=== PATIENT | male | born 1970 | race Caucasian/White ===

== ENCOUNTER 2016-05-09 01:00 | Emergency (ER) | payer OTHER ==
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
[2016-05-09] MEDS ORDERED: IBUPROFEN 600 MG TABLET (FP) PO STA (01:25)
[2016-05-09] MEDS ORDERED: IBUPROFEN 400 MG TABLET (FP) PO ONE (01:37)
[2016-05-09 01:47] VITALS: BP 158/109; PULSE 93; TEMP 97.8; BMI 32.8
[2016-05-09] MEDS ORDERED: OXYCODONE/APAP 5/325MG COMBO TABLET PO ONE (02:28)
[2016-05-09] MEDS ORDERED: OXYCODONE/APAP 5/325MG COMBO TABLET ONE (02:37)
== END 2016-05-09 02:39 | disposition home or self-care (01) ==
LOC: JER 01:00
DX: S09.8XXA Other specified injuries of head, initial encounter (principal); G44.309 Post-traumatic headache, unspecified, not intractable; W20.8XXA Other cause of strike by thrown, projected or falling object, initial encounter; Y93.89 Activity, other specified; Y92.59 Other trade areas as the place of occurrence of the external cause; Y99.0 Civilian activity done for income or pay
CPT/HCPCS: 70450-TC; 99281-25

== ENCOUNTER 2016-05-09 22:30 | Emergency (ER) | payer OTHER ==
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
[2016-05-10] MEDS ORDERED: KETOROLAC TROMETHAMINE 60 MG/2 ML VIAL IM ONE (00:07)
[2016-05-10] MEDS ORDERED: KETOROLAC TROMETHAMINE 60 MG/2 ML VIAL ONE (00:27)
[2016-05-10 00:37] VITALS: BP 141/83; PULSE 80; TEMP 97.4; BMI 32.8
== END 2016-05-10 00:41 | disposition home or self-care (01) ==
LOC: JER 22:30
DX: R20.0 Anesthesia of skin (principal); W22.8XXD Striking against or struck by other objects, subsequent encounter; Y93.89 Activity, other specified; Y92.59 Other trade areas as the place of occurrence of the external cause; Y99.0 Civilian activity done for income or pay
CPT/HCPCS: 70486-TC; 72125-TC; 99282-25

== ENCOUNTER 2018-01-22 06:53 | Day surgery (SDC) | payer OTHER ==
[2018-01-19 13:16] VITALS: BMI 29.9
[~2018-01-22 06:53] MED LIST: oxyCODONE HCL 10 MG SUSTAINED ACTING TABLET PO ONE
[2018-01-22] MEDS ORDERED: oxyCODONE HCL 10 MG SUSTAINED ACTING TABLET ONE (07:07)
[2018-01-22] MEDS ORDERED: GELATIN, ABSORBABLE 100 EACH SPONGE TP ONE (07:40)
[2018-01-22] MEDS ORDERED: LIDOCAINE 1%/EPI 1:100000 (20 ML MULTI DOSE VIAL) ONE (07:40)
[2018-01-22] MEDS ORDERED: THROMBIN (BOVINE) 5,000 UNIT VIAL TP ONE ×2 (07:40→10:28)
[2018-01-22] MEDS ORDERED: DEXAMETHASONE SOD PHOSPHATE/PF 10 MG/ML SDV ONE (08:32)
[2018-01-22] MEDS ORDERED: BUPIVACAINE HCL/PF (5 MG/ML) 30 ML VIAL IJ ONE (08:33)
[2018-01-22] MEDS ORDERED: MIDAZOLAM HCL 2 MG/2 ML SINGLE DOSE VIAL ONE (08:33)
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
[2018-01-22] MEDS ORDERED: ONDANSETRON 4 MG/2 ML VIAL IVPUSH PRN ×2 (11:51→16:08)
[2018-01-22] MEDS ORDERED: oxyCODONE HCL 5 MG TABLET PO PRN (11:51)
[2018-01-22] MEDS ORDERED: ACETAMINOPHEN 1000 MG/100 ML VIAL (NON FORMULARY) IVPB ONE ×2 (11:54→12:05)
[2018-01-22] MEDS ORDERED: PATIENT'S OWN MEDICATION (NON-FORMULARY) (Dextroamphetamine/Amphetamine [Adderall 10 Mg Ta PO PRN (11:58)
[2018-01-22] MEDS ORDERED: clonazePAM 0.5 MG TABLET PO PRN (12:01)
[2018-01-22] MEDS ORDERED: diazePAM 2 MG TABLET ONE (12:30)
[2018-01-22] MEDS ORDERED: diazePAM 2 MG TABLET PO ONE (12:30)
[2018-01-22] MEDS: LACTATED RINGERS SOLUTION 1,000 ML IV SCH (13:52)
[2018-01-22] MEDS ORDERED: clonazePAM 0.5 MG TABLET PO SCH (14:00)
[2018-01-22] MEDS ORDERED: diazePAM 5 MG TABLET PO SCH (14:00)
--- NOTE | 2018-01-22 15:35 | OP ---
DATE OF OPERATION: 01/22/2018 PREOPERATIVE DIAGNOSIS: Cervical stenosis, C6-C7. POSTOPERATIVE DIAGNOSIS: Cervical stenosis, C6-C7. PROCEDURE PERFORMED: 1. Anterior cervical discectomy, C6-C7. 2. Anterior cervical fusion, C6-C7. 3. Placement of instrumentation, C6-C7. 4. Placement of cage. SURGEON: Allan Gomez MD TALK SHOW HOST: BAIRON Castillo ESTIMATED BLOOD LOSS: 50 mL. INTRAVENOUS FLUIDS: Per Anesthesia. ANESTHESIA: General. COMPLICATIONS: There were none. DISPOSITION: Patient was brought to the PACU in stable condition. INDICATIONS FOR SURGERY: The patient is a 47-year-old gentleman who has been suffering from pain from his neck down his right arm. X-rays and MRI were completed, which noted that he had cervical stenosis at C6-C7. He had gone through an exhaustive course of treatment which included medications, physical therapy, as well as injections. Unfortunately, his pain continued to persist despite all this. At this point, risks, benefits, and alternatives were discussed, and the patient consented to surgery. OPERATIVE NOTE: Patient was brought into the operating room by the anesthesia staff. After appropriate patient identification was performed, general anesthesia was given. SCP block was also given. Patient was positioned supine on the OR table with arms well-padded and tucked at the side. A shoulder roll was placed underneath his neck to extend his neck that he could tolerate in the preoperative holding area. After positioning was completed, neuromonitoring was done and was stable. A needle was placed onto his neck to tamir off the C6-C7 level, and x-rays taken to confirm this was correct. The needle was removed, and 10 mL of lidocaine with epinephrine was injected in his neck at this time. His neck was prepped and draped in the usual sterile manner. At this point, a time-out was completed. A 2-inch incision was made on the left side of her neck. Dissection was carried down to the platysma. The platysma was cut in line with the skin incision. Next, internal sternocleidomastoid as well as strap muscles was developed. Next, an internally rotated carotid sheath as well as trachea esophagus was developed. Peanuts were used to elevate off the prevertebral fascia. A needle was placed into the C6-C7 disc. An x-ray was taken to confirm this. The needle was removed, and the disc was cut. The longus colli muscles were elevated off, and retractor blades were placed in. A [employer] [place] pin was placed into the bodies of C6 and C7. Distraction was applied. Microscope was brought in. A knife was used to incise the disc. Using a series of sutures, Kerrrison, and curettes, discectomy was completed. The end-plates were decorticated at this time. A cage was measured and placed in. [employer] [place] pins were removed. A screw was placed in the body of C6 and placed in the body of C7. AP and lateral x-rays confirmed the instrumentation to be in good position. Final tightening was performed at this time. The platysma was closed with a 2-0 Vicryl suture. Skin was closed with a 3-0 Monocryl suture. Dermabond was applied. Steri-Strips were applied. Sterile dressings were applied. Patient was placed supine on the OR bed, x-rayed in the OR, and brought to the PACU in stable condition. Gaudencio SCANLON/[id number]
--- NOTE | 2018-01-22 15:55 | OP ---
Operative Note - Note: Operative Date: 01/22/18 Pre-Operative Diagnosis: anterior cervical stenosis, radiculopathy Operation: anterior cervcial discectomy fusion of C6-C7 with allograft and neuromonitoring Surgeon: Allan Gomez Rn Medical Surgical: Carmen Flores Anesthesiologist/ADVERTISING ACCOUNT MANAGER: Sushil Loredo Anesthesia: Spinal Estimated Blood Loss (mls): 20 Fluid Volume Replaced (mls): 1,300 Operative Report Dictated: Yes
--- NOTE | 2018-01-22 15:56 | SURG ---
Surgery Income Tax Consultant Note Income Tax Consultant: Carmen Flores PA-C Date of Service: 01/22/18 Diagnosis: anterior cervical stenosis, radiculopathy Procedure: anterior cervcial discectomy fusion of C6-C7 with allograft and neuromonitoring I was present for the entirety of the operative procedure. For further detail, please refer to operative report. Visit type - Case Type Case Type: Scheduled - Emergency Emergency Visit: No - New patient This patient is new to me today: Yes Date on this admission: 01/22/18
[2018-01-22] MEDS: oxyCODONE HCL 5 MG TABLET PO PRN ×2 (16:46→19:53)
[2018-01-22] MEDS ORDERED: PHENOL 177 ML SPRAY BOTTLE MM ONE (17:15)
[2018-01-22] MEDS: ACETAMINOPHEN 325 MG TABLET (FP) PO SCH (17:25)
[2018-01-22] MEDS: CEFAZOLIN 1 GM/D5W 1 GRAM/50 ML BAG IVPB SCH (17:26)
[2018-01-22] MEDS: diazePAM 2 MG TABLET PO PRN (19:53)
[2018-01-22] MEDS ORDERED: oxyCODONE HCL 5 MG TABLET PO ONE (20:15)
[2018-01-22] MEDS ORDERED: BUPROPION HCL 150 MG PO SCH (22:00)
[2018-01-22] MEDS ORDERED: ESZOPICLONE 3 MG PO SCH (22:00)
[2018-01-22] MEDS ORDERED: PRAZOSIN HCL 2 MG CAPSULE PO SCH (22:00)
[2018-01-23] MEDS: oxyCODONE HCL 5 MG TABLET PO PRN ×3 (00:52→13:53)
[2018-01-23] MEDS: ACETAMINOPHEN 325 MG TABLET (FP) PO SCH ×2 (00:53→07:08)
[2018-01-23] MEDS: CEFAZOLIN 1 GM/D5W 1 GRAM/50 ML BAG IVPB SCH (01:21)
--- NOTE | 2018-01-23 08:07 | DS ---
"Physical Exam: SUBJECTIVE: Patient seen and examined POD #1 ACDF, patient seen and examined at bedside. Patient states pain is controlled but he has some discomfort in his throat with swallowing. He denies any CP, SOB, N/V, Fever or chills. He has been OOB ambulating without assistance and voiding. OBJECTIVE: Vital Signs Period Temp Pulse Resp BP Sys/Gannon Pulse Ox Last 24 Hr 97.3 F-97.8 F 57-88 16-20 128-163/73-104 94-99 PHYSICAL EXAM GENERAL: The patient is awake, alert, and fully oriented, in no acute distress. HEAD: Normal with no signs of trauma. EYES: extraocular movements intact, sclera anicteric, conjunctiva clear. NECK: Trachea midline, Incision c/d/i with surrounding tissue intact, no tracking erythema, edema or collection, no d/c, steri strips intact and clean and dry, incision flat. EXTREMITIES:moving all extremities without limitation NEUROLOGICAL: Cranial nerves II through XII grossly intact. Normal speech, gait observed. PSYCH: Normal mood, normal affect. SKIN: Warm, dry, normal turgor, no rashes or lesions noted. LABS HOSPITAL COURSE: The patient was admitted to the Med-Surg Unit after an elective repair of their cervical stenosis. Now, s/p ACDF C6-C7. The day of surgery, the patient ambulated the hallways with assistance. Narcotic and non-narcotic pain management control was achieved with an oral and IV approach. POD #1, An xray was obtained and confirmed hardware placement at C6-C7), no fractures or dislocations. Jacqueline-operative IV ABX were administered. DVT prophylaxis was achieved with SCDs and early ambulation. The patient ambulated with Physical Therapy and no services were recommended upon discharge. Narcotic scripts and or muscle relaxants were checked with [facility] prior to escibe. The discharge instructions and an oral pain management plan were reviewed with the patient. All questions answered. Above plan discussed with Dr. Gomez and agreed. Date of Admission:01/22/18 Date of Discharge: 01/23/18 Minutes to complete discharge: 25 <Simona Rob - Last Filed: 01/23/18 08:08> Physical Exam: SUBJECTIVE: Patient seen and examined OBJECTIVE: Vital Signs Period Temp Pulse Resp BP Sys/Gannon Pulse Ox Last 24 Hr 97.3 F-98.2 F 57-82 16-19 117-152/60-76 94-99 PHYSICAL EXAM GENERAL: The patient is awake, alert, and fully oriented, in no acute distress. HEAD: Normal with no signs of trauma. EYES: PERRL, extraocular movements intact, sclera anicteric, conjunctiva clear. ENT: Ears normal, nares patent, oropharynx clear without exudates, moist mucous membranes. NECK: Trachea midline, full range of motion, supple. LUNGS: Breath sounds equal, clear to auscultation bilaterally, no wheezes, no crackles, no accessory muscle use. HEART: Regular rate and rhythm, S1, S2 without murmur, rub or gallop. ABDOMEN: Soft, nontender, nondistended, normoactive bowel sounds, no guarding, no rebound, no hepatosplenomegaly, no masses. EXTREMITIES: 2+ pulses, warm, well-perfused, no edema. NEUROLOGICAL: Cranial nerves II through XII grossly intact. Normal speech, gait not observed. PSYCH: Normal mood, normal affect. SKIN: Warm, dry, normal turgor, no rashes or lesions noted. LABS HOSPITAL COURSE: Date of Admission:01/22/18 Date of Discharge: 01/23/18 Patient seen and examined Agree with above D/C Planning <Allan Gomez - Last Filed: 01/23/18 13:48> Discharge Summary Reason For Visit: CERVICAL STENOSIS - Home Medications Comprehensive Discharge Medication List: Ambulatory Orders Bupropion HCl [Wellbutrin Sr] 150 mg PO BID 12/22/17 Dextroamphetamine/Amphetamine [Adderall 10 mg Tablet] 10 mg PO BID PRN 12/22/17 Prazosin HCl [Minipress] 2 mg PO BID 12/24/17 clonazePAM [Klonopin -] 0.5 mg PO TID PRN 12/24/17 Eszopiclone [Lunesta] 3 mg PO HS 01/19/18 Hydrocodone/Acetaminophen [Vicodin 5-300 mg Tablet] 1 each PO Q4H PRN #30 tablet MDD 6 01/22/18 <Simona Rob - Last Filed: 01/23/18 08:08> Current Active Problems Cervical stenosis of spinal canal (Acute) - Home Medications Comprehensive Discharge Medication List: Ambulatory Orders Bupropion HCl [Wellbutrin Sr] 150 mg PO BID 12/22/17 Dextroamphetamine/Amphetamine [Adderall 10 mg Tablet] 10 mg PO BID PRN 12/22/17 Prazosin HCl [Minipress] 2 mg PO BID 12/24/17 clonazePAM [Klonopin -] 0.5 mg PO TID PRN 12/24/17 Eszopiclone [Lunesta] 3 mg PO HS 01/19/18 Hydrocodone/Acetaminophen [Vicodin 5-300 mg Tablet] 1 each PO Q4H PRN #30 tablet MDD 6 01/22/18 <Allan Gomez - Last Filed: 01/23/18 13:48> Condition: Good - Instructions Diet, Activity, Other Instructions: Post Operative Instructions - Dr Gomez Diet: You may resume your regular diet. We recommend eating plenty of fiber rich foods to prevent constipation, which can be caused by taking narcotic pain medications. You may also use a stool softener such as DulcoEase. We recommend drinking plenty of water unless you are on fluid restrictions for another medical condition. If you are a diabetic, make sure to keep your glucose well controlled as elevated glucose levels promote infection. Medications: You may resume your previous medications unless otherwise instructed by your surgeon, primary care doctor or appliance repairer. You have been prescribed a Narcotic pain medication. Driving or drinking alcohol is PROHIBITED while taking narcotic pain medication, as is operating any heavy machinery. Activity: No bending and or twisting at the waist. No lifting greater than [address] until seen in the office for your first post-operative visit. You may be a passenger for a short time (20-30 minutes) until you are able to tolerate longer distances. Wound Care: Keep area clean and dry. May remove dressing in two (2) days and replace with clean gauze and occlusive dressing such as a tegaderm. NO BATHS. You may shower starting two (2) days after your surgery. When showering, leave the occlusive(plastic) dressing in place and change if it appears wet. Avoid direct water stream onto your incision. General Recommendations: If sitting, use only a straight back chair to ensure proper support, not to exceed a half hour at a time. Lie only on a firm mattress, no couches or recliner chairs. You may lie on your back or side, but not on your abdomen. * Absolutely no bending, stooping, pushing, lifting or straining. * Avoid housework, especially vacuuming or sweeping. * OK to cook, as long as you are not lifting anything heavier than 5 pounds. * Use proper body mechanics to maintain a neutral spine position. * Increasing pain is a red flag telling you to rest. Call your surgeon or report to the ED if you develop: Fevers over 101.5 Chest pain, trouble breathing, calf pain Drainage from the incision (yellow/green, foul smelling) Follow-up Call surgeon's office to schedule your follow-up appointment in two weeks. Referred to following clinics/specialists for follow-up care: Allan Gomez MD [facility]/[address], [address] [place], [place] [address] [phone] rev12/23 This report was requested by: Carmen Flores | Reference #: [id number] Disposition: HOME Problem List - Problems (1) Cervical stenosis of spinal canal Assessment/Plan: POD #1 ACDF C6-C7 doing well 1) OOB with PT today formal evaluation 2) Xray 3) Encourage IS 4) Plan for D/c home today pending PT eval and xray Code(s): M48.02 - SPINAL STENOSIS, CERVICAL REGION <Simona Rob - Last Filed: 01/23/18 08:08> This patient is new to me today: Yes Date on this admission: 01/23/18 Emergency Visit: No Critical Care patient: No - Discharge Referral Referred to [facility] Med P.C.: No <Simona Rob - Last Filed: 01/23/18 08:08>"
[2018-01-23] MEDS: diazePAM 2 MG TABLET PO PRN (08:56)
--- NOTE | 2018-01-23 09:34 | PN ---
Progress Note (short form) - Note Progress Note: Post op day#1.S/p C6-C7 ACDF under ga uneventful.Patient stable.No any anesthesia related problem.Patient Dc from the anesthesia care.
[2018-01-23] MEDS ORDERED: PRAZOSIN HCL 1 MG CAPSULE PO SCH (10:00)
[2018-01-23] MEDS ORDERED: PT OWN MED DRAWER 7, Y5N ONE (10:02)
[2018-01-23] MEDS: LACTATED RINGERS SOLUTION 1,000 ML IV SCH (13:52)
[2018-01-23 15:35] VITALS: BP 120/60; PULSE 70; TEMP 9807
--- NOTE | 2018-01-28 14:56 | PATH ---
Surgical Pathology Report Patient Name: RAHEEM ALVARADO Med. Rec. #: [id number] /Age/Gender: 1970 (Age: 47) / M Account: [id number] Location: COUNTS INCLUDE 234 BEDS AT THE [facility] AM[facility] Taken: 01/22/2018 Received: 01/22/2018 Reported: 01/28/2018 Physicians: Allan Gomez M.D. Specimen(s) Received C6-C7 DISC Clinical History Cervical stenosis Final Diagnosis DISC, C6-C7, EXCISION: CARTILAGE WITH DEGENERATIVE CHANGES. Electronically Signed Simona Msaon M.D. Gross Description Received in formalin labeled "C6-7," is a 2.7 x 1.8 x 0.3 cm aggregate of lockhart fragments of fibrocartilaginous tissue. The specimen is entirely submitted in one cassette. 01/26/201801/26/2018
== END 2018-01-23 15:20 | disposition home or self-care (01) ==
LOC: FASU 06:53 → FM/S 13:14 → FASU 01-23 15:20
PROVIDERS: ATTEND Orthopaedic Surgery Orthopaedic Surgery of the Spine
PROC: 0RG10A0 Fusion of Cervical Vertebral Joint with Interbody Fusion Device, Anterior Approach, Anterior Column, Open Approach (ICD-10-PCS; 2018-01-22)
PROC: 0RG10K0 Fusion of Cervical Vertebral Joint with Nonautologous Tissue Substitute, Anterior Approach, Anterior Column, Open Approach (ICD-10-PCS; 2018-01-22)
PROC: 0RB30ZZ Excision of Cervical Vertebral Disc, Open Approach (ICD-10-PCS; principal; 2018-01-22 10:01)
DX: M48.02 Spinal stenosis, cervical region (principal)
CPT/HCPCS: 22551; 22845; 22853; C1889; 72050-TC-FY; 76000-TC-FY; 88304-TC; 94760; 97116-GP; 97161-GP; J0131

== ENCOUNTER 2018-08-10 13:48 | Emergency (ER) | payer BC, OTHER ==
[2018-08-10 14:04] VITALS: BP 153/96; PULSE 90; TEMP 98.2; BMI 29.2
--- NOTE | 2018-08-10 14:04 | PDOC ---
Rapid Medical Evaluation Chief Complaint: Chest Pain Time Seen by Provider: 08/10/18 14:02 Medical Evaluation: Allergies Allergy/AdvReac Type Severity Reaction Status Date / Time No Known Allergies Allergy Verified 08/10/18 14:00 08/10/18 14:02 I have performed a brief in-person evaluation of this patient. The patient presents with a chief complaints of: pain under left breast since . Patient reports helping with jacking up a car and since then with pain especially with movement and sorenes Pertinent physical exam findings NAD poor inspiration effort due to pain + tenderness with palpation under left breast I have ordered the following: ekg The patient will proceed to the ED for further evaluation. Discharge Disposition - Diagnosis Musculoskeletal pain - Referrals - Patient Instructions - Post Discharge Activity
--- NOTE | 2018-08-10 14:28 | PDOC ---
History of Present Illness - General Chief Complaint: Injury Stated Complaint: CHEST PAIN Time Seen by Provider: 08/10/18 14:02 - History of Present Illness Initial Comments: 08/10/18 14:26 47-year-old male with a past medical history significant for PTSD sleep disorder cervical radiculopathy takes numerous pain medication neuropathic agents an antipsychotic meds presents for evaluation of left-sided chest pain. He states 4 days ago he was working on a car when he turned his head to reach for something he felt a strain in his neck and he developed left-sided chest pain which is intermittent and exacerbated with activity. This pain is not gone away is not radiating. He does have an underlying cervical radicular condition. He had a cervical fusion in January 2018 since that time he had ongoing cervical radiculopathy on the right side. However the left sided chest pain is new and occurred while he was reaching for an object while changing a tire on a car. Past History - Past Medical History Allergies/Adverse Reactions: Allergies Allergy/AdvReac Type Severity Reaction Status Date / Time No Known Allergies Allergy Verified 08/10/18 14:00 Home Medications: Ambulatory Orders Bupropion HCl [Wellbutrin Sr] 150 mg PO BID 12/22/17 Dextroamphetamine/Amphetamine [Adderall 10 mg Tablet] 10 mg PO BID PRN 12/22/17 Prazosin HCl [Minipress] 2 mg PO BID 12/24/17 Eszopiclone [Lunesta] 3 mg PO HS 01/19/18 Amphetamine [Dyanavel Xr] 2.5 mg PO ASDIR 08/10/18 Clonazepam 1 mg PO TID 08/10/18 Eszopiclone 1 mg PO DAILY 08/10/18 Gabapentin 600 mg PO TID 08/10/18 Oxycodone HCl [Oxycodone HCl ER] 20 mg PO ASDIR 08/10/18 Prazosin HCl 1 mg PO BID 08/10/18 Anemia: No Asthma: No Cancer: No Cardiac Disorders: No CVA: No COPD: No CHF: No Dementia: No Diabetes: No GI Disorders: No Disorders: No HTN: No Hypercholesterolemia: No Liver Disease: No Seizures: No Thyroid Disease: No - Surgical History Abdominal Surgery: No Appendectomy: No Cardiac Surgery: No Cholecystectomy: No Lung Surgery: No Neurologic Surgery: No Orthopedic Surgery: Yes ([facility]NA [facility] TIM[facility] 8) - Immunization History Immunization Up to Date: Yes - Suicide/Smoking/Psychosocial Hx Smoking History: Never smoked Have you smoked in the past 12 months: Yes Number of Cigarettes Smoked Daily: 2 If you are a former smoker, when did you quit?: 2018 'Breaking Loose' booklet given: 01/19/18 Hx Alcohol Use: No Drug/Substance Use Hx: No Substance Use Type: None Hx Substance Use Treatment: No Review of Systems - Review of Systems Cardiac (ROS): Yes: See HPI, Chest Pain *Physical Exam - Vital Signs Last Vital Signs Temp Pulse Resp BP Pulse Ox 98.2 F 90 17 153/96 96 08/10/18 14:00 08/10/18 14:00 08/10/18 14:00 08/10/18 14:00 08/10/18 14:00 - Physical Exam Comments: 08/10/18 14:25 HEAD: NC/AT EYES: Conjuntiva clear NOSE: No d/c THROAT: Moist mucous membrances, oral pharanx clear, uvula midline NECK: Supple without adenopathy CARDIAC: S1 S2; left-sided costochondral tenderness and rib pain about the ribs of 5 and 6 LUNGS: CTA Full and Equal breath sounds ABDOMEN: Soft NT ND MS: Full ROM in all joints without edema NEUROLOGIC: No gross sensory or motor deficits, NVID; 4 out of 5 strength on the right 5 out of 5 on the left which is pre-existing in bilateral upper extremities no gross sensorimotor deficits. SKIN: Normal color and temperature no lesions or rashes Medical Decision Making - Medical Decision Making 08/10/18 14:24 Patient takes an numerous amount of psych medication also is on oxycodone. I am hesitant to add any more medication to his already existing regimen. I will have him follow-up with his orthopedic surgeon for ongoing cervical radicular symptoms and left sided costochondritis rib strain after a stretch type of injury. This is a noncardiac chest pain. His EKG was normal. *DC/Admit/Observation/Transfer Diagnosis at time of Disposition: Musculoskeletal pain, Sprain of ribs - Discharge Dispostion Disposition: HOME Condition at time of disposition: Stable Decision to Admit order: No - Referrals Referrals: Allan Gomez MD [Staff Physician] - - Patient Instructions Additional Instructions: Continue with your regular indication as directed return to the emergency room for worsening symptoms. Please follow-up with your orthopedic surgeon in one to 2 days for further evaluation and treatment options. You may also add Tylenol to your pain medication for additional relief should you require it. Follow-up with your orthopedic surgeon in one to 2 days. - Post Discharge Activity
--- NOTE | 2018-08-10 15:08 | EKG ---
Test Reason : Blood Pressure : / mmHG Vent. Rate : 073 BPM Atrial Rate : 073 BPM P-R Int : 166 ms QRS Dur : 092 ms QT Int : 392 ms P-R-T Axes : 034 018 033 degrees QTc Int : 431 ms NORMAL SINUS RHYTHM NORMAL ECG WHEN COMPARED WITH ECG OF 23-DEC-2017 16:42, NO SIGNIFICANT CHANGE WAS FOUND Confirmed by DALTON FARMER MD ([id number]) on 08/10/2018 3:08:32 PM Referred By: Confirmed By:DALTON FARMER MD
== END 2018-08-10 14:39 | disposition home or self-care (01) ==
LOC: JERFT 13:48
DX: S23.41XA Sprain of ribs, initial encounter (principal); X50.9XXA Other and unspecified overexertion or strenuous movements or postures, initial encounter; Y93.89 Activity, other specified; Y92.89 Other specified places as the place of occurrence of the external cause; Y99.8 Other external cause status
CPT/HCPCS: 93005; 93010; 99281-25

== ENCOUNTER 2020-07-13 14:45 | Inpatient (IN) | payer BC ==
[2020-07-13] MEDS ORDERED: LACTATED RINGERS SOLUTION 1000 ML INFUS.BAG IV ONE ×2 (15:01→16:35)
[2020-07-13] MEDS ORDERED: ONDANSETRON 4 MG/2 ML VIAL IVPB ONE (15:01)
[2020-07-13] MEDS ORDERED: morphine CARPU-JECT 4 MG/1 ML DISP.SYRIN IVPUSH ONE ×2 (15:01→19:03)
[2020-07-13] MEDS ORDERED: morphine SULFATE 4 MG/ML VIAL ONE ×2 (15:12→19:07)
[2020-07-13] MEDS ORDERED: ONDANSETRON 4 MG/2 ML VIAL ONE (15:12)
[2020-07-13 15:53] LABS: BASO % 0.8 % (0-2.0); EOS % 1.8 % (0-4.5); HEMATOCRIT 50.4 % (35.4-49); HEMOGLOBIN 17.2 GM/dl (11.7-16.9); LYMPH % 15.7 % (8-40); MCH 29.3 pg (25.7-33.7); MCHC 34.1 g/dl (32.0-35.9); MEAN CELL VOLUME 85.7 fl (80-96); MEAN PLT VOLUME 8.8 fl (7.5-11.1); MONO % 6.2 % (3.8-10.2); NEUT % 75.5 % (42.8-82.8); PLATELET COUNT 222 K/MM3 (134-434); RBC 5.88 M/mm3 (4.00-5.60); RDW 12.1 % (11.9-15.9); WHITE BLOOD COUNT 9.6 K/mm3 (4.0-10.8)
[2020-07-13] MEDS ORDERED: KETOROLAC TROMETHAMINE 15 MG/ML VIAL IVPUSH ONE (16:03)
[2020-07-13 16:05] LABS: BILIRUBIN,TOTAL 1.3 mg/dl (0.2-1); CALCIUM 9.4 mg/dl (8.5-10); CREATININE 2.2 mg/dl (0.55-1.3); TOT PROT 7.6 g/dl (6.4-8.2)
[2020-07-13] MEDS ORDERED: KETOROLAC TROMETHAMINE 30 MG/1 ML VIAL ONE (16:05)
[2020-07-13] MEDS ORDERED: HYDROmorphone HCl 2 MG/ML VIAL IVPUSH ONE (20:55)
[2020-07-13] MEDS ORDERED: amLODIPine BESYLATE 5 MG TABLET (FP) PO ONE (20:56)
[2020-07-13] MEDS ORDERED: HYDROmorphone HCL/PF 1 MG/ML VIAL ONE (20:58)
[2020-07-13] MEDS ORDERED: amLODIPine BESYLATE 5 MG TABLET (FP) ONE (21:01)
[2020-07-13] MEDS: SODIUM CHLORIDE 1,000 ML IV SCH (22:17)
[2020-07-13 22:41] VITALS: BMI 36.1
[2020-07-13] MEDS: HEPARIN NA (PORCINE) 5,000 UNITS/ML 1ML VIAL SQ SCH (22:41)
[2020-07-13] MEDS: morphine SULFATE 4 MG/ML VIAL IVPUSH PRN (22:54)
[2020-07-14] MEDS: morphine SULFATE 4 MG/ML VIAL IVPUSH PRN ×4 (06:12→21:53)
[2020-07-14] MEDS: HEPARIN NA (PORCINE) 5,000 UNITS/ML 1ML VIAL SQ SCH ×3 (06:12→21:11)
[2020-07-14] MEDS: ONDANSETRON 4 MG/2 ML VIAL IVPUSH PRN ×2 (06:58→21:46)
[2020-07-14 07:56] LABS: BASO % 1.2 % (0-2.0); HEMATOCRIT 45.3 % (35.4-49); HEMOGLOBIN 15.5 GM/dl (11.7-16.9); LYMPH % 17.6 % (8-40); MCH 29.3 pg (25.7-33.7); MCHC 34.3 g/dl (32.0-35.9); MEAN CELL VOLUME 85.6 fl (80-96); MEAN PLT VOLUME 8.5 fl (7.5-11.1); MONO % 8.1 % (3.8-10.2); NEUT % 70.1 % (42.8-82.8); PLATELET COUNT 213 K/MM3 (134-434); RBC 5.29 M/mm3 (4.00-5.60); RDW 12.1 % (11.9-15.9); WHITE BLOOD COUNT 8.1 K/mm3 (4.0-10.8)
[2020-07-14 08:04] LABS: ALBUMIN 4.5 g/dl (3.4-5.0); BILIRUBIN,TOTAL 1.3 mg/dl (0.2-1); MAGNESIUM 2.2 mg/dL (1.8-2.4); TOT PROT 6.7 g/dl (6.4-8.2)
[2020-07-14] MEDS: amLODIPine BESYLATE 10 MG TABLET (FP) PO SCH (10:07)
[2020-07-14] MEDS: SODIUM CHLORIDE 1,000 ML IV SCH (21:13)
[2020-07-14] MEDS ORDERED: HYDROmorphone HCl 2 MG/ML VIAL IVPB ONE (22:31)
[2020-07-14] MEDS ORDERED: HYDROmorphone HCl 2 MG/ML VIAL ONE (22:37)
[2020-07-15] MEDS: HEPARIN NA (PORCINE) 5,000 UNITS/ML 1ML VIAL SQ SCH ×3 (06:21→22:00)
[2020-07-15] MEDS: morphine SULFATE 4 MG/ML VIAL IVPUSH PRN ×3 (07:09→20:23)
[2020-07-15 08:09] LABS: BASO % 0.6 % (0-2.0); EOS % 3.9 % (0-4.5); HEMATOCRIT 43.3 % (35.4-49); HEMOGLOBIN 14.7 GM/dl (11.7-16.9); LYMPH % 23.2 % (8-40); MCH 28.8 pg (25.7-33.7); MEAN CELL VOLUME 84.9 fl (80-96); MEAN PLT VOLUME 8.1 fl (7.5-11.1); MONO % 9.8 % (3.8-10.2); NEUT % 62.5 % (42.8-82.8); PLATELET COUNT 202 K/MM3 (134-434); RDW 11.8 % (11.9-15.9); WHITE BLOOD COUNT 6.8 K/mm3 (4.0-10.8)
[2020-07-15 08:18] LABS: ALBUMIN 4.3 g/dl (3.4-5.0); CREATININE 1.8 mg/dl (0.55-1.3); MAGNESIUM 2.3 mg/dL (1.8-2.4); TOT PROT 6.3 g/dl (6.4-8.2)
[2020-07-15] MEDS ORDERED: KETOROLAC TROMETHAMINE 30 MG/1 ML VIAL IVPUSH PRN (08:41)
[2020-07-15] MEDS: amLODIPine BESYLATE 10 MG TABLET (FP) PO SCH (10:00)
[2020-07-15] MEDS ORDERED: ACETAMINOPHEN 1000 MG/100 ML VIAL (NON FORMULARY) IVPB PRN (16:08)
[2020-07-15] MEDS: POLYETHYLENE GLYCOL 3350 119 GM BTL PO SCH ×2 (16:20→23:57)
[2020-07-15] MEDS: SODIUM CHLORIDE 1,000 ML IV SCH (20:24)
[2020-07-16] MEDS ORDERED: MORPHINE SULFATE 2 MG/ML VIAL IVPUSH ONE (00:40)
[2020-07-16] MEDS: ONDANSETRON 4 MG/2 ML VIAL IVPUSH PRN (00:52)
[2020-07-16] MEDS: morphine SULFATE 4 MG/ML VIAL IVPUSH PRN ×4 (01:34→18:32)
[2020-07-16] MEDS: HEPARIN NA (PORCINE) 5,000 UNITS/ML 1ML VIAL SQ SCH ×3 (06:21→22:11)
[2020-07-16] MEDS: amLODIPine BESYLATE 10 MG TABLET (FP) PO SCH (10:02)
[2020-07-16] MEDS: POLYETHYLENE GLYCOL 3350 119 GM BTL PO SCH ×2 (10:12→22:11)
[2020-07-16 13:14] LABS: HEMATOCRIT 45.9 % (35.4-49); HEMOGLOBIN 15.8 GM/dl (11.7-16.9); MCH 29.3 pg (25.7-33.7); MCHC 34.5 g/dl (32.0-35.9); MEAN CELL VOLUME 85.1 fl (80-96); MEAN PLT VOLUME 8.5 fl (7.5-11.1); PLATELET COUNT 208 K/MM3 (134-434); RBC 5.39 M/mm3 (4.00-5.60); RDW 12.2 % (11.9-15.9); WHITE BLOOD COUNT 7.5 K/mm3 (4.0-10.8)
[2020-07-16 13:49] LABS: CREATININE 1.7 mg/dl (0.55-1.3); MAGNESIUM 2.4 mg/dL (1.8-2.4); PHOSPHOROUS 3.5 mg/dl (2.5-4.9)
[2020-07-16] MEDS ORDERED: SODIUM CHLORIDE 1,000 ML IV SCH (14:48)
[2020-07-16] MEDS: DOXAZOSIN MESYLATE 2 MG TABLET PO SCH (16:55)
[2020-07-16] MEDS ORDERED: DOXAZOSIN MESYLATE 2 MG TABLET PO SCH (17:00)
[2020-07-16] MEDS: HYDROmorphone HCl 2 MG/ML VIAL IVPB PRN (22:07)
[2020-07-17] MEDS: morphine SULFATE 4 MG/ML VIAL IVPUSH PRN (03:08)
[2020-07-17] MEDS: HEPARIN NA (PORCINE) 5,000 UNITS/ML 1ML VIAL SQ SCH (05:27)
[2020-07-17] MEDS: HYDROmorphone HCl 2 MG/ML VIAL IVPB PRN (07:29)
[2020-07-17 08:23] LABS: CALCIUM 9.3 mg/dl (8.5-10); CREATININE 1.6 mg/dl (0.55-1.3); MAGNESIUM 2.2 mg/dL (1.8-2.4)
[2020-07-17] MEDS: amLODIPine BESYLATE 10 MG TABLET (FP) PO SCH (09:26)
[2020-07-17] MEDS: DOXAZOSIN MESYLATE 2 MG TABLET PO SCH (09:26)
[2020-07-17] MEDS: POLYETHYLENE GLYCOL 3350 119 GM BTL PO SCH (09:27)
[2020-07-17] MEDS ORDERED: MIDAZOLAM HCL 2 MG/2 ML SINGLE DOSE VIAL ONE ×2 (13:00→14:24)
[2020-07-17] MEDS ORDERED: PROPOFOL 20 ML ONE ×4 (13:01→13:51)
[2020-07-17] MEDS ORDERED: fentaNYL CITRATE 250 MCG/5 ML VIAL ONE (13:29)
[2020-07-17] MEDS ORDERED: ROCURONIUM BROMIDE 50 MG/5 ML SYRINGE ONE (13:32)
[2020-07-17] MEDS ORDERED: DESFLURANE GAS 240 ML BOTTLE IH ONE (13:35)
[2020-07-17] MEDS ORDERED: SEVOFLURANE 250 ML BTL ONE (13:35)
[2020-07-17] MEDS ORDERED: oxyCODONE HCL 5 MG TABLET PO PRN (14:35)
[2020-07-17] MEDS ORDERED: LACTATED RINGERS SOLUTION 1,000 ML IV SCH (14:45)
[2020-07-17] MEDS ORDERED: oxyCODONE HCL 5 MG TABLET ONE (16:06)
[2020-07-17 18:19] VITALS: BP 141/89; PULSE 89; TEMP 97.9
[2020-07-26 09:24] LABS: SIZE 3X4 MM
[2020-07-26 09:25] LABS: URIC ACID 100%; WEIGHT 22 MG
== END 2020-07-17 18:00 | disposition home or self-care (01) | DRG 661 ==
LOC: FER 14:45 → FM/S 16:44 → FER 18:23 → J2C 07-17 13:25
PROVIDERS: ADMIT Internal Medicine; ATTEND Nurse Practitioner Acute Care
PROC: 0TC78ZZ Extirpation of Matter from Left Ureter, Via Natural or Artificial Opening Endoscopic (ICD-10-PCS; principal; 2020-07-17 13:00)
PROC: 0T778DZ Dilation of Left Ureter with Intraluminal Device, Via Natural or Artificial Opening Endoscopic (ICD-10-PCS; 2020-07-17 13:00)
DX: N13.2 Hydronephrosis with renal and ureteral calculous obstruction (principal); N17.9 Acute kidney failure, unspecified; I10 Essential (primary) hypertension; E78.5 Hyperlipidemia, unspecified; E66.9 Obesity, unspecified; Z68.36 Body mass index [BMI] 36.0-36.9, adult; M54.12 Radiculopathy, cervical region
CPT/HCPCS: 36415; 71045-TC-FY; 74019-TC-FY; 74176-TC; 76000-TC-FY; 80048; 80053; 80061; 81003; 81015; 82272; 82360; 82436; 83036; 83690; 83721; 83735; 84100; 84133; 84300; 84443; 85025; 85027; 87045; 87046; 87086; 87186; 93005; 94760; 99285-25; C9803; J0131; J1644; U0003; U0005

== ENCOUNTER 2020-10-02 05:30 | Day surgery (SDC) | payer BC ==
[2020-09-28 17:41] VITALS: BMI 35.5
[2020-10-02] MEDS ORDERED: MIDAZOLAM HCL 2 MG/2 ML SINGLE DOSE VIAL ONE (16:53)
[2020-10-02] MEDS ORDERED: ACETAMINOPHEN 1000 MG/100 ML VIAL (NON FORMULARY) IVPB ONE ×2 (18:13→18:25)
[2020-10-02] MEDS ORDERED: ACETAMINOPHEN INJECTION 100 ML IVPB ONE (18:16)
[2020-10-02 19:28] VITALS: BP 169/104; PULSE 88; TEMP 97.4
== END 2020-10-02 19:25 | disposition home or self-care (01) ==
LOC: JASU-SURG 05:30
PROVIDERS: ATTEND Urology
PROC: 0TF4XZZ Fragmentation in Left Kidney Pelvis, External Approach (ICD-10-PCS; principal; 2020-10-02 15:00)
DX: N20.0 Calculus of kidney (principal)
CPT/HCPCS: J0131

== ENCOUNTER 2021-10-22 11:27 | Inpatient (IN) | payer OTHER ==
[2021-10-22 12:26] VITALS: BMI 36.9
[2021-10-22] MEDS ORDERED: MAG HYDROX/AL HYDROX/SIMETH 30 ML UNIT-DOSE CUP PO PRN (12:37)
[2021-10-22] MEDS ORDERED: NICOTINE 10 MG CARTRIDGE (INHALER) IH PRN (12:37)
[2021-10-22] MEDS ORDERED: LOPERAMIDE HCL 2 MG CAPSULE PO PRN (12:37)
[2021-10-22] MEDS ORDERED: BISMUTH SUBSALICYLATE 524 MG/30 ML PO PRN (12:37)
[2021-10-22] MEDS ORDERED: MAGNESIUM CITRATE 300 ML BOTTLE PO PRN (12:37)
[2021-10-22] MEDS ORDERED: ACETAMINOPHEN 325 MG TABLET (FP) PO PRN ×2 (12:37)
[2021-10-22] MEDS ORDERED: ONDANSETRON *ODT* 4 MG TABLET SL PRN (12:37)
[2021-10-22] MEDS ORDERED: BENZOCAINE/MENTHOL (CHLORASEPTIC ) LOZENGE MM PRN (12:37)
[2021-10-22] MEDS ORDERED: MAGNESIUM HYDROX 2400MG/30ML ORAL SUSPENSION 30 ML CUP PO PRN (12:37)
[2021-10-22] MEDS ORDERED: DICYCLOMINE HCL 10 MG CAPSULE PO PRN (12:37)
[2021-10-22] MEDS ORDERED: BUPRENORPHINE HCL 150 MCG, BUPRENORPHINE HCL 75 MCG BC PRN (12:37)
[2021-10-22] MEDS ORDERED: IBUPROFEN 600 MG TABLET (FP) PO PRN (12:37)
[2021-10-22] MEDS ORDERED: BUPRENORPHINE HCL 150 MCG FILM BC ONE (13:38)
[2021-10-22] MEDS ORDERED: BUPRENORPHINE HCL 75 MCG FILM BC ONE (13:38)
[2021-10-22] MEDS ORDERED: IBUPROFEN 400 MG TABLET (FP) PO ONE (13:39)
[2021-10-22] MEDS ORDERED: METHOCARBAMOL 500 MG TABLET ONE (13:39)
[2021-10-22] MEDS ORDERED: cloNIDine HCL 0.1 MG TABLET ONE (13:39)
[2021-10-22] MEDS ORDERED: cloNIDine HCL 0.1 MG TABLET PO ONE (13:45)
[2021-10-22] MEDS ORDERED: BUPRENORPHINE HCL 150 MCG, BUPRENORPHINE HCL 75 MCG BC ONE (13:45)
[2021-10-22] MEDS: IBUPROFEN 400 MG TABLET (FP) PO PRN ×2 (13:49→22:54)
[2021-10-22] MEDS: METHOCARBAMOL 500 MG TABLET PO PRN ×2 (13:50→22:54)
[2021-10-22] MEDS: hydrOXYzine PAMOATE 25 MG CAPSULE (FP) PO SCH ×3 (14:03→22:16)
[2021-10-22] MEDS: PRENATAL VITAMINS W/ FOLIC ACID TABLET (FP) PO SCH (14:03)
[2021-10-22] MEDS: diazePAM 5 MG TABLET PO PRN (18:00)
[2021-10-22] MEDS: cloNIDine HCL 0.1 MG TABLET PO PRN (18:02)
[2021-10-22] MEDS ORDERED: MELATONIN 5 MG TABLETS PO SCH (22:00)
[2021-10-22] MEDS: THIAMINE HCL 100 MG TABLET (FP) PO SCH (22:16)
[2021-10-22] MEDS: SUVOREXANT 10 MG TABLET PO PRN (22:17)
[2021-10-23] MEDS ORDERED: BUPRENORPHINE HCL 150 MCG, BUPRENORPHINE HCL 75 MCG BC PRN
[2021-10-23] MEDS ORDERED: BUPRENORPHINE HCL 150 MCG FILM BC ONE ×2 (04:41→17:20)
[2021-10-23] MEDS ORDERED: BUPRENORPHINE HCL 75 MCG FILM BC ONE ×2 (04:41→17:21)
[2021-10-23] MEDS: hydrOXYzine PAMOATE 25 MG CAPSULE (FP) PO SCH ×5 (05:19→22:30)
[2021-10-23] MEDS: BUPRENORPHINE HCL 150 MCG, BUPRENORPHINE HCL 75 MCG BC SCH ×2 (05:20→18:17)
[2021-10-23] MEDS: diazePAM 5 MG TABLET PO PRN ×2 (10:18→22:32)
[2021-10-23] MEDS: PRENATAL VITAMINS W/ FOLIC ACID TABLET (FP) PO SCH (10:18)
[2021-10-23] MEDS: METHOCARBAMOL 500 MG TABLET PO PRN ×2 (10:18→22:32)
[2021-10-23] MEDS: cloNIDine HCL 0.1 MG TABLET PO PRN ×2 (10:19→22:32)
[2021-10-23] MEDS: THIAMINE HCL 100 MG TABLET (FP) PO SCH (22:30)
[2021-10-23] MEDS: SUVOREXANT 10 MG TABLET PO PRN (22:32)
[2021-10-24] MEDS: cloNIDine HCL 0.1 MG TABLET PO PRN ×2 (04:52→18:03)
[2021-10-24] MEDS: BUPRENORPHINE HCL 450 MCG FILM BC SCH ×2 (05:13→18:01)
[2021-10-24] MEDS: hydrOXYzine PAMOATE 25 MG CAPSULE (FP) PO SCH ×5 (05:14→23:18)
[2021-10-24] MEDS ORDERED: diazePAM 5 MG TABLET PO PRN (10:23)
[2021-10-24] MEDS: METHOCARBAMOL 500 MG TABLET PO PRN (10:27)
[2021-10-24] MEDS: PRENATAL VITAMINS W/ FOLIC ACID TABLET (FP) PO SCH (10:27)
[2021-10-24] MEDS: amLODIPine BESYLATE 5 MG TABLET (FP) PO SCH (10:27)
[2021-10-24] MEDS: diazePAM 5 MG TABLET PO PRN (10:27)
[2021-10-24 11:54] LABS: HEMATOCRIT 48.5 % (35.4-49); MCH 29.3 pg (25.7-33.7); MCHC 35.1 g/dl (32.0-35.9); MEAN CELL VOLUME 83.5 fl (80-96); MEAN PLT VOLUME 8.4 fl (7.5-11.1); PLATELET COUNT 221 10^3/uL (134-434); RDW 12.9 % (11.9-15.9); WHITE BLOOD COUNT 7.8 K/mm3 (4.0-10.0)
[2021-10-24 12:10] LABS: CALCIUM 9.5 mg/dL (8.5-10.1)
[2021-10-24 12:11] LABS: ALBUMIN 4.6 g/dl (3.4-5.0); BLOOD UREA NITROGEN 12.3 mg/dL (7-18)
[2021-10-24 12:14] LABS: CREATININE 0.9 mg/dL (0.55-1.3)
[2021-10-24 12:15] LABS: TOT PROT 7.2 g/dl (6.4-8.2)
[2021-10-24] MEDS: THIAMINE HCL 100 MG TABLET (FP) PO SCH (23:19)
[2021-10-24 23:23] VITALS: BP 153/104; PULSE 110; TEMP 98.2
[2021-10-25] MEDS: hydrOXYzine PAMOATE 25 MG CAPSULE (FP) PO SCH ×5 (06:11→23:56)
[2021-10-25] MEDS: BUPRENORPHINE/NALOXONE 4 MG/1 MG FILM PACKET SL SCH ×2 (06:11→19:06)
[2021-10-25] MEDS: PRENATAL VITAMINS W/ FOLIC ACID TABLET (FP) PO SCH (11:01)
[2021-10-25] MEDS: amLODIPine BESYLATE 5 MG TABLET (FP) PO SCH (11:01)
[2021-10-25] MEDS: THIAMINE HCL 100 MG TABLET (FP) PO SCH (23:56)
[2021-10-26] MEDS: hydrOXYzine PAMOATE 25 MG CAPSULE (FP) PO SCH (05:51)
[2021-10-26] MEDS ORDERED: BUPRENORPHINE/NALOXONE 8 MG/2 MG FILM PACKET SL ONE (06:00)
== END 2021-10-26 08:55 | disposition short-term general hospital (02) | DRG 897 ==
LOC: YASAS 11:27 → Y6N 13:19
PROVIDERS: ADMIT Allergy & Immunology; ATTEND Surgery
PROC: HZ2ZZZZ Detoxification Services for Substance Abuse Treatment (ICD-10-PCS; principal; 2021-10-22)
DX: F11.23 Opioid dependence with withdrawal (principal); F19.282 Other psychoactive substance dependence with psychoactive substance-induced sleep disorder; F17.220 Nicotine dependence, chewing tobacco, uncomplicated; F43.10 Post-traumatic stress disorder, unspecified; I10 Essential (primary) hypertension; G47.30 Sleep apnea, unspecified; Z87.448 Personal history of other diseases of urinary system
CPT/HCPCS: 36415; 80053; 85027; 86780; 93005; 93010; C9803-CS; J0735; U0003; U0005

== ENCOUNTER 2021-10-24 22:59 | Emergency (ER) | payer BC, OTHER ==
[2021-10-24 23:29] VITALS: BP 138/90; PULSE 94; TEMP 98.7; BMI 36.2
[2021-10-24] MEDS ORDERED: IBUPROFEN 400 MG TABLET (FP) PO ONE (23:56)
[2021-10-25] MEDS ORDERED: IBUPROFEN 400 MG TABLET (FP) PO ONE (00:02)
[2021-10-25 00:39] LABS: BASO % 0.3 % (0-2.0); EOS % 1.1 % (0-4.5); HEMATOCRIT 52.2 % (35.4-49); HEMOGLOBIN 17.8 GM/dL (11.7-16.9); INR 1.02 (0.83-1.09); LYMPH % 21.8 % (8-40); MCH 28.5 pg (25.7-33.7); MCHC 34.2 g/dl (32.0-35.9); MEAN CELL VOLUME 83.2 fl (80-96); MEAN PLT VOLUME 8.3 fl (7.5-11.1); MONO % 5.6 % (3.8-10.2); NEUT % 71.2 % (42.8-82.8); PLATELET COUNT 254 10^3/uL (134-434); PROTHROMBIN TIME (PATIENT) 11.7 SEC (9.7-13.0); RBC 6.27 M/mm3 (4.00-5.60); RDW 13.1 % (11.9-15.9); WHITE BLOOD COUNT 9.3 K/mm3 (4.0-10.0)
[2021-10-25 00:41] LABS: ACTIVATED PTT 31.5 SECONDS (25.2-36.5)
[2021-10-25 00:50] LABS: ALBUMIN 4.8 g/dl (3.4-5.0); CALCIUM 10.2 mg/dL (8.5-10.1)
[2021-10-25 00:51] LABS: BLOOD UREA NITROGEN 17.2 mg/dL (7-18)
[2021-10-25 00:53] LABS: CREATININE 1.2 mg/dL (0.55-1.3)
[2021-10-25 00:55] LABS: BILIRUBIN,TOTAL 0.8 mg/dL (0.2-1)
== END 2021-10-25 03:48 | disposition home or self-care (01) ==
LOC: JER 22:59
DX: R07.89 Other chest pain (principal)
CPT/HCPCS: 36415; 71045-TC-FY; 80053; 84484; 85025; 85610; 85730; 93005; 93010; 99285-25

== ENCOUNTER 2022-02-18 20:07 | Emergency (ER) | payer BC ==
[2022-02-18 20:17] VITALS: RESP 16; TEMP 98; BMI 38.3
[2022-02-18] MEDS ORDERED: ACETAMINOPHEN 1000 MG/100 ML BAG IVPB ONE (20:55)
[2022-02-18] MEDS ORDERED: METOCLOPRAMIDE HCL INJECTION 10 MG/2 ML VIAL IVPB ONE (20:55)
[2022-02-18] MEDS ORDERED: amLODIPine BESYLATE 5 MG TABLET (FP) PO ONE (20:57)
[2022-02-18] MEDS ORDERED: METOCLOPRAMIDE HCL INJECTION 10 MG/2 ML VIAL ONE (21:03)
[2022-02-18] MEDS ORDERED: ACETAMINOPHEN INJECTION 100 ML IVPB ONE (21:03)
[2022-02-18] MEDS ORDERED: amLODIPine BESYLATE 5 MG TABLET (FP) ONE (21:03)
[2022-02-18 21:24] VITALS: BP 148/101; PULSE 85
[2022-02-18 21:38] LABS: BASO % 0.7 % (0-2.0); EOS % 3.5 % (0-4.5); HEMATOCRIT 48.8 % (35.4-49); HEMOGLOBIN 16.7 GM/dL (11.7-16.9); LYMPH % 30.3 % (8-40); MCH 29.6 pg (25.7-33.7); MCHC 34.3 g/dl (32.0-35.9); MEAN CELL VOLUME 86.4 fl (80-96); MONO % 10.3 % (3.8-10.2); NEUT % 55.2 % (42.8-82.8); PLATELET COUNT 192 10^3/uL (134-434); RBC 5.65 M/mm3 (4.00-5.60); RDW 13.7 % (11.9-15.9); WHITE BLOOD COUNT 7.1 K/mm3 (4.0-10.0)
[2022-02-18 21:58] LABS: CALCIUM 8.7 mg/dL (8.5-10.1)
[2022-02-18 21:59] LABS: ALBUMIN 4.2 g/dl (3.4-5.0); BLOOD UREA NITROGEN 13.7 mg/dL (7-18)
[2022-02-18 22:02] LABS: CREATININE 0.9 mg/dL (0.55-1.3)
[2022-02-18 22:04] LABS: BILIRUBIN,TOTAL 0.9 mg/dL (0.2-1); TOT PROT 7.5 g/dl (6.4-8.2)
== END 2022-02-18 22:37 | disposition home or self-care (01) ==
LOC: JER 20:07
PROC: 3E033GC Introduction of Other Therapeutic Substance into Peripheral Vein, Percutaneous Approach (ICD-10-PCS; principal; 2022-02-18)
DX: R51.9 Headache, unspecified (principal)
CPT/HCPCS: 36415; 80053; 85025; 99284-25

== ENCOUNTER → 2022-02-18 | Day surgery (SDC) | payer BC ==
[2022-02-14 15:16] VITALS: BMI 37.6
[~2022-02-18] MED LIST changes: +ACETAMINOPHEN 500 MG TABLET (FP) ONE; +ACETAMINOPHEN 500 MG TABLET (FP) PO ONE; +ACETAMINOPHEN/CAFFEINE/BUTALBITAL 1 TAB PO STA; +MIDAZOLAM HCL 2 MG/2 ML SINGLE DOSE VIAL ONE; +PROPOFOL 20 ML ONE; -oxyCODONE HCL 10 MG SUSTAINED ACTING TABLET PO ONE; +oxyCODONE HCL 5 MG TABLET PO ONE
[2022-02-18 15:27] VITALS: RESP 18; TEMP 98.4
[2022-02-18 16:56] VITALS: PULSE 68
[2022-02-18 20:38] VITALS: BP 200/120
== END | disposition home or self-care (01) ==
LOC: JASU-SURG 03:55
PROVIDERS: ATTEND Urology
PROC: 0TF3XZZ Fragmentation in Right Kidney Pelvis, External Approach (ICD-10-PCS; principal; 2022-02-18 13:30)
DX: N20.0 Calculus of kidney (principal)

== ENCOUNTER 2022-04-09 11:37 | Inpatient (IN) | payer OTHER ==
[2022-04-09 13:09] VITALS: BMI 40.4
[2022-04-09] MEDS ORDERED: amLODIPine BESYLATE 5 MG TABLET (FP) PO ONE ×2 (13:49→14:08)
[2022-04-09] MEDS ORDERED: DICYCLOMINE HCL 10 MG CAPSULE PO PRN (13:59)
[2022-04-09] MEDS ORDERED: MAG HYDROX/AL HYDROX/SIMETH 30 ML UNIT-DOSE CUP PO PRN (13:59)
[2022-04-09] MEDS ORDERED: MAGNESIUM HYDROX 2400MG/30ML ORAL SUSPENSION 30 ML CUP PO PRN (13:59)
[2022-04-09] MEDS ORDERED: NALOXONE HCL (KLOXXADO) 8 MG SPRAY NS PRN (13:59)
[2022-04-09] MEDS ORDERED: BISMUTH SUBSALICYLATE 262 MG/15 ML BTL PO PRN (13:59)
[2022-04-09] MEDS ORDERED: IBUPROFEN 600 MG TABLET (FP) PO PRN (13:59)
[2022-04-09] MEDS ORDERED: BUPRENORPHINE HCL 150 MCG, BUPRENORPHINE HCL 75 MCG BC ONE (13:59)
[2022-04-09] MEDS ORDERED: POLYETHYLENE GLYCOL (HEALTHYLAX) 3350 17 GM PACKET PO PRN (13:59)
[2022-04-09] MEDS ORDERED: LOPERAMIDE HCL 2 MG CAPSULE PO PRN (13:59)
[2022-04-09] MEDS ORDERED: cloNIDine HCL 0.1 MG TABLET PO ONE (13:59)
[2022-04-09] MEDS ORDERED: BUPRENORPHINE HCL 150 MCG, BUPRENORPHINE HCL 75 MCG BC PRN (13:59)
[2022-04-09] MEDS ORDERED: ONDANSETRON *ODT* 4 MG TABLET SL PRN (13:59)
[2022-04-09] MEDS ORDERED: ACETAMINOPHEN 325 MG TABLET (FP) PO PRN (13:59)
[2022-04-09] MEDS ORDERED: IBUPROFEN 400 MG TABLET (FP) PO PRN (13:59)
[2022-04-09] MEDS ORDERED: NICOTINE 10 MG CARTRIDGE (INHALER) IH PRN (13:59)
[2022-04-09] MEDS ORDERED: BENZOCAINE/MENTHOL (CHLORASEPTIC ) LOZENGE MM PRN (13:59)
[2022-04-09] MEDS ORDERED: BUPRENORPHINE HCL 150 MCG FILM BC ONE (14:09)
[2022-04-09] MEDS ORDERED: BUPRENORPHINE HCL 75 MCG FILM BC ONE (14:09)
[2022-04-09] MEDS ORDERED: cloNIDine HCL 0.1 MG TABLET ONE (14:09)
[2022-04-09] MEDS ORDERED: amLODIPine BESYLATE 5 MG TABLET (FP) ONE (14:09)
[2022-04-09] MEDS: PRENATAL VITAMINS W/ FOLIC ACID TABLET (FP) PO SCH (15:01)
[2022-04-09] MEDS: NICOTINE 14 MG/24 HOURS TOPICAL PATCH TD SCH (15:01)
[2022-04-09 19:00] LABS: HEMATOCRIT 51.2 % (35.4-49); HEMOGLOBIN 17.3 GM/dL (11.7-16.9); MCH 29.1 pg (25.7-33.7); MCHC 33.8 g/dl (32.0-35.9); MEAN CELL VOLUME 86.1 fl (80-96); MEAN PLT VOLUME 8.7 fl (7.5-11.1); PLATELET COUNT 233 10^3/uL (134-434); RBC 5.95 M/mm3 (4.00-5.60); RDW 13.7 % (11.9-15.9); WHITE BLOOD COUNT 7.3 K/mm3 (4.0-10.0)
[2022-04-09 19:03] LABS: CALCIUM 9.4 mg/dL (8.5-10.1)
[2022-04-09 19:04] LABS: ALBUMIN 4.6 g/dl (3.4-5.0); BLOOD UREA NITROGEN 14.5 mg/dL (7-18)
[2022-04-09 19:08] LABS: BILIRUBIN,TOTAL 0.6 mg/dL (0.2-1); TOT PROT 7.6 g/dl (6.4-8.2)
[2022-04-09 19:10] LABS: CREATININE 1.1 mg/dL (0.55-1.3)
[2022-04-09] MEDS ORDERED: MELATONIN 5 MG TABLETS PO SCH (22:00)
[2022-04-09] MEDS: THIAMINE HCL 100 MG TABLET (FP) PO SCH (22:36)
[2022-04-10] MEDS ORDERED: BUPRENORPHINE HCL 150 MCG, BUPRENORPHINE HCL 75 MCG BC PRN
[2022-04-10] MEDS: cloNIDine HCL 0.1 MG TABLET PO PRN ×3 (02:10→21:39)
[2022-04-10] MEDS: BUPRENORPHINE HCL 150 MCG, BUPRENORPHINE HCL 75 MCG BC SCH ×2 (05:44→18:05)
[2022-04-10] MEDS: hydrOXYzine PAMOATE 25 MG CAPSULE (FP) PO PRN ×2 (05:47→13:19)
[2022-04-10] MEDS: METHOCARBAMOL 500 MG TABLET PO PRN ×2 (05:47→13:19)
[2022-04-10] MEDS: diazePAM 5 MG TABLET PO PRN ×2 (10:24→21:39)
[2022-04-10] MEDS: PRENATAL VITAMINS W/ FOLIC ACID TABLET (FP) PO SCH (10:25)
[2022-04-10] MEDS: amLODIPine BESYLATE 10 MG TABLET (FP) PO SCH (10:25)
[2022-04-10] MEDS: NICOTINE 14 MG/24 HOURS TOPICAL PATCH TD SCH (10:25)
[2022-04-10] MEDS: THIAMINE HCL 100 MG TABLET (FP) PO SCH (21:39)
[2022-04-10] MEDS: SUVOREXANT 10 MG TABLET PO PRN (22:00)
[2022-04-11] MEDS: BUPRENORPHINE HCL 450 MCG FILM BC SCH ×2 (05:52→17:43)
[2022-04-11] MEDS: METHOCARBAMOL 500 MG TABLET PO PRN ×2 (05:54→12:42)
[2022-04-11] MEDS: cloNIDine HCL 0.1 MG TABLET PO PRN ×2 (05:54→12:42)
[2022-04-11] MEDS: ACETAMINOPHEN 325 MG TABLET (FP) PO PRN ×2 (05:57→21:41)
[2022-04-11] MEDS: amLODIPine BESYLATE 10 MG TABLET (FP) PO SCH (10:45)
[2022-04-11] MEDS: PRENATAL VITAMINS W/ FOLIC ACID TABLET (FP) PO SCH (10:45)
[2022-04-11] MEDS: diazePAM 5 MG TABLET PO PRN (10:46)
[2022-04-11] MEDS: NICOTINE 14 MG/24 HOURS TOPICAL PATCH TD SCH (11:15)
[2022-04-11] MEDS: LISINOPRIL 10 MG TABLET PO SCH ×2 (11:15→21:41)
[2022-04-11 17:30] LABS: HEMATOCRIT 51.9 % (35.4-49); HEMOGLOBIN 17.8 GM/dL (11.7-16.9); MCH 29.1 pg (25.7-33.7); MCHC 34.3 g/dl (32.0-35.9); MEAN CELL VOLUME 84.8 fl (80-96); MEAN PLT VOLUME 8.8 fl (7.5-11.1); PLATELET COUNT 233 10^3/uL (134-434); RBC 6.12 M/mm3 (4.00-5.60); RDW 13.5 % (11.9-15.9); WHITE BLOOD COUNT 11.3 K/mm3 (4.0-10.0)
[2022-04-11 17:41] LABS: ALBUMIN 4.4 g/dl (3.4-5.0); BLOOD UREA NITROGEN 16.1 mg/dL (7-18); CALCIUM 9.5 mg/dL (8.5-10.1)
[2022-04-11 17:45] LABS: BILIRUBIN,TOTAL 1.2 mg/dL (0.2-1)
[2022-04-11] MEDS: THIAMINE HCL 100 MG TABLET (FP) PO SCH (23:12)
[2022-04-12] MEDS ORDERED: BUPRENORPHINE/NALOXONE 4 MG/1 MG FILM PACKET SL SCH (06:00)
[2022-04-12] MEDS: cloNIDine HCL 0.1 MG TABLET PO PRN ×2 (08:07→13:30)
[2022-04-12] MEDS ORDERED: BUPRENORPHINE/NALOXONE 4 MG/1 MG FILM PACKET SL ONE ×4 (10:00→18:00)
[2022-04-12] MEDS: NICOTINE 14 MG/24 HOURS TOPICAL PATCH TD SCH (11:32)
[2022-04-12] MEDS: LISINOPRIL 10 MG TABLET PO SCH ×2 (11:33→22:22)
[2022-04-12] MEDS: amLODIPine BESYLATE 10 MG TABLET (FP) PO SCH (11:33)
[2022-04-12] MEDS: PRENATAL VITAMINS W/ FOLIC ACID TABLET (FP) PO SCH (11:34)
[2022-04-12] MEDS: hydrOXYzine PAMOATE 25 MG CAPSULE (FP) PO PRN (11:34)
[2022-04-12] MEDS: METHOCARBAMOL 500 MG TABLET PO PRN (11:34)
[2022-04-12] MEDS: THIAMINE HCL 100 MG TABLET (FP) PO SCH (22:22)
[2022-04-12] MEDS: SUVOREXANT 10 MG TABLET PO PRN (22:23)
[2022-04-13] MEDS ORDERED: BUPRENORPHINE/NALOXONE 8 MG/2 MG FILM PACKET SL ONE (06:00)
[2022-04-13 06:32] VITALS: RESP 18; TEMP 97.8
[2022-04-13 07:35] VITALS: BP 159/110; PULSE 98
[2022-04-13] MEDS ORDERED: amLODIPine BESYLATE 10 MG TABLET (FP) PO SCH (07:45)
== END 2022-04-13 09:34 | disposition home or self-care (01) | DRG 897 ==
LOC: YASAS 11:37 → Y6N 14:07
PROVIDERS: ADMIT Allergy & Immunology; ATTEND Surgery
PROC: HZ2ZZZZ Detoxification Services for Substance Abuse Treatment (ICD-10-PCS; principal; 2022-04-09)
DX: F11.23 Opioid dependence with withdrawal (principal); F19.282 Other psychoactive substance dependence with psychoactive substance-induced sleep disorder; Z68.41 Body mass index [BMI] 40.0-44.9, adult; F12.20 Cannabis dependence, uncomplicated; F17.210 Nicotine dependence, cigarettes, uncomplicated; F19.24 Other psychoactive substance dependence with psychoactive substance-induced mood disorder; F43.10 Post-traumatic stress disorder, unspecified; G47.30 Sleep apnea, unspecified; I16.0 Hypertensive urgency; N40.0 Benign prostatic hyperplasia without lower urinary tract symptoms; M79.10 Myalgia, unspecified site; E66.01 Morbid (severe) obesity due to excess calories; R50.9 Fever, unspecified
CPT/HCPCS: 36415; 80053; 85027; 86780; 87804; 87811; C9803-CS; Q0162; U0003; U0005

== ENCOUNTER 2022-04-09 15:54 | Emergency (ER) | payer BC, OTHER ==
[2022-04-09 16:50] VITALS: PULSE 83; RESP 20; TEMP 98.1; BMI 40.4
[2022-04-09] MEDS ORDERED: MINERAL OIL ENEMA 133 ML ENEMA PR ONE (18:13)
[2022-04-09 19:22] LABS: HEMATOCRIT 50.6 % (35.4-49); HEMOGLOBIN 17.1 GM/dL (11.7-16.9); MCHC 33.8 g/dl (32.0-35.9); MEAN CELL VOLUME 85.8 fl (80-96); MEAN PLT VOLUME 8.5 fl (7.5-11.1); PLATELET COUNT 222 10^3/uL (134-434); RDW 13.4 % (11.9-15.9); WHITE BLOOD COUNT 8.2 K/mm3 (4.0-10.0)
[2022-04-09 19:50] LABS: ALBUMIN 4.6 g/dl (3.4-5.0)
[2022-04-09 19:51] LABS: BLOOD UREA NITROGEN 13.9 mg/dL (7-18); CALCIUM 9.3 mg/dL (8.5-10.1)
[2022-04-09 19:56] LABS: BILIRUBIN,TOTAL 0.7 mg/dL (0.2-1); TOT PROT 7.2 g/dl (6.4-8.2)
[2022-04-09] MEDS ORDERED: Methylnaltrexone Bromide 12 MG/0.6 ML KIT SQ ONE (20:14)
[2022-04-09] MEDS ORDERED: ACETAMINOPHEN INJECTION 100 ML IVPB ONE (21:13)
[2022-04-09] MEDS ORDERED: ACETAMINOPHEN 1000 MG/100 ML BAG IVPB ONE (21:14)
[2022-04-09 22:11] VITALS: BP 160/88
== END 2022-04-09 22:59 | disposition home or self-care (01) ==
LOC: JER 15:54
PROC: 3E0333Z Introduction of Anti-inflammatory into Peripheral Vein, Percutaneous Approach (ICD-10-PCS; principal; 2022-04-09)
DX: I16.0 Hypertensive urgency (principal); F11.20 Opioid dependence, uncomplicated; I10 Essential (primary) hypertension
CPT/HCPCS: 36415; 70450-TC; 80053; 85027; 93005; 93010; 99285-25

== ENCOUNTER 2022-04-11 23:44 | Emergency (ER) | payer BC, OTHER ==
[2022-04-11 23:49] VITALS: PULSE 92; RESP 18; TEMP 98.4; BMI 40.4
[2022-04-12 00:44] LABS: BASO % 0.4 % (0-2.0); EOS % 0.3 % (0-4.5); HEMATOCRIT 54.1 % (35.4-49); HEMOGLOBIN 18.8 GM/dL (11.7-16.9); LYMPH % 14.4 % (8-40); MCH 29.3 pg (25.7-33.7); MCHC 34.8 g/dl (32.0-35.9); MEAN CELL VOLUME 84.4 fl (80-96); MEAN PLT VOLUME 7.8 fl (7.5-11.1); MONO % 7.6 % (3.8-10.2); NEUT % 77.3 % (42.8-82.8); PLATELET COUNT 239 10^3/uL (134-434); RBC 6.42 M/mm3 (4.00-5.60); RDW 13.7 % (11.9-15.9); WHITE BLOOD COUNT 12.1 K/mm3 (4.0-10.0)
[2022-04-12 01:05] LABS: ALBUMIN 4.5 g/dl (3.4-5.0); BLOOD UREA NITROGEN 17.7 mg/dL (7-18); CALCIUM 9.6 mg/dL (8.5-10.1)
[2022-04-12 01:08] LABS: CREATININE 1.1 mg/dL (0.55-1.3)
[2022-04-12 01:09] LABS: BILIRUBIN,TOTAL 1.1 mg/dL (0.2-1); TOT PROT 7.6 g/dl (6.4-8.2)
[2022-04-12] MEDS ORDERED: LACTATED RINGERS SOLUTION 1000 ML INFUS.BAG IV ONE (01:49)
[2022-04-12] MEDS ORDERED: ACETAMINOPHEN 1000 MG/100 ML BAG IVPB ONE (03:06)
[2022-04-12] MEDS ORDERED: ACETAMINOPHEN INJECTION 100 ML IVPB ONE (03:42)
[2022-04-12] MEDS ORDERED: cloNIDine HCL 0.1 MG TABLET PO ONE ×2 (04:25→05:26)
[2022-04-12] MEDS ORDERED: cloNIDine HCL 0.1 MG TABLET ONE ×2 (04:41→06:06)
[2022-04-12] MEDS ORDERED: KETOROLAC TROMETHAMINE 15 MG/ML VIAL IVPUSH ONE (05:24)
[2022-04-12] MEDS ORDERED: KETOROLAC TROMETHAMINE 15 MG/ML VIAL ONE (06:06)
[2022-04-12 06:52] VITALS: BP 156/95
== END 2022-04-12 07:48 | disposition home or self-care (01) ==
LOC: JER 23:44
PROC: 3E033GC Introduction of Other Therapeutic Substance into Peripheral Vein, Percutaneous Approach (ICD-10-PCS; principal; 2022-04-11)
DX: I10 Essential (primary) hypertension (principal)
CPT/HCPCS: 0241U-QW; 36415; 70450-TC; 71045-TC-FY; 80053; 84484; 85025; 93005; 93010; 99285-25